=== PATIENT | female | born 1985 | race Caucasian/White ===

== ENCOUNTER 2016-12-25 09:22 | Day surgery (SDC) | payer OTHER ==
[2016-12-25] MEDS ORDERED: LIDOCAINE 1% 5 ML SDV ID PRN (09:40)
[2016-12-25] MEDS ORDERED: LR 1,000 ML IV ONE ×2 (09:40→10:00)
[2016-12-25] MEDS ORDERED: ceFAZolin 2 GM/DEXTROSE 100 ML IV ONE (10:00)
[2016-12-25] MEDS ORDERED: PHENAZOPYRIDINE HCL 200 MG TAB PO ONE (10:00)
[2016-12-25] MEDS ORDERED: fentaNYL 250 MCG/5 ML INJ ONE (10:43)
[2016-12-25] MEDS ORDERED: PROPOFOL 200 MG/20 ML VIAL ONE ×3 (10:43→11:59)
[2016-12-25] MEDS ORDERED: PROPOFOL/EMULSION 500 MG/50 ML BOTTLE IV ONE (10:43)
[2016-12-25] MEDS ORDERED: DEXAMETHASONE 4 MG/ML VIAL ONE (10:43)
[2016-12-25] MEDS ORDERED: GLYCOPYRROLATE 0.2 MG/1 ML VIAL ONE (10:44)
[2016-12-25] MEDS ORDERED: ROCURONIUM 100 MG/10 ML VIAL ONE (10:44)
[2016-12-25] MEDS ORDERED: MIDAZOLAM 2 MG/2 ML VIAL ONE (10:45)
[2016-12-25] MEDS ORDERED: SCOPOLAMINE HYDROBROMIDE 1.5 MG PATCH TD ONE ×2 (10:46→11:00)
[2016-12-25] MEDS ORDERED: SKIN ADHESIVE (DERMABOND) 1 EACH TP ONE (10:58)
[2016-12-25] MEDS ORDERED: BUPIVACAINE/EPI 0.5% 30 ML SDV ONE (10:58)
[2016-12-25] MEDS ORDERED: fentaNYL 100 MCG/2 ML INJ ONE ×2 (12:00→12:49)
[2016-12-25] MEDS ORDERED: ONDANSETRON 4 MG/2 ML VIAL ONE ×2 (12:12→12:50)
[2016-12-25] MEDS ORDERED: SUGAMMADEX SODIUM 200 MG/2 ML VIAL IVP ONE (12:13)
[2016-12-25] MEDS ORDERED: METOPROLOL TARTRATE 5 MG/5 ML INJ ONE (12:14)
[2016-12-25] MEDS ORDERED: HYDROmorphONE/DILAUDID 1 MG/ML SYR ONE ×2 (12:49→13:06)
[2016-12-25] MEDS ORDERED: HYDROCODONE/APAP 5/325 TAB ONE (12:50)
[2016-12-25] MEDS ORDERED: PROMETHAZINE HCL 25 MG/ML INJ ONE (13:06)
[2016-12-25] MEDS ORDERED: DIAZEPAM 10 MG/2 ML SYR ONE (13:15)
--- NOTE | 2016-12-25 13:58 | GOP ---
[f rep st] OPERATIVE REPORT DATE OF OPERATION: 12/25/2016 SURGEON: Kwame Chand MD [facility]ARIAN: Traci Cuba CFA ANESTHESIA: General. PREOPERATIVE DIAGNOSIS: 1. Endometriosis. 2. Pelvic pain. 3. Dysmenorrhea. POSTOPERATIVE DIAGNOSIS: 1. Endometriosis. 2. Pelvic pain. 3. Dysmenorrhea. PROCEDURE PERFORMED: 1. Robotic excision of pelvic peritoneum with endometriosis. 2. Right ureterolysis. 3. Cystoscopy. 4. Removal of intrauterine device. FINDINGS: SPECIMENS: Pelvic peritoneum with endometriosis. ESTIMATED BLOOD LOSS: Scant. DESCRIPTION OF PROCEDURE: The patient was taken to the operating room where she was identified. General anesthesia was administered and found to be adequate. She was placed in the lithotomy position and prepared and draped in normal sterile fashion. A speculum was placed in the vagina. The Mirena IUD was grasped with a ring forceps and easily removed. A [employer] uterine manipulator was placed into the endometrial cavity. A Hong catheter was then placed. A 1 cm infraumbilical incision was made with a scalpel. The Veress needle with a CO2 gas flowing advanced into the peritoneal cavity. The abdomen was then insufflated with carbon dioxide gas. The 12 mm trocar followed by the laparoscope were then inserted. The upper abdomen was unremarkable. There was no evidence of endometriosis on either diaphragm, liver, gallbladder, or stomach. Two lateral ports were placed, one on the right and one on the left, under direct visualization. The patient was then placed in Trendelenburg position and the da Coleen robot docked on the left side. The instruments were then brought into the abdominal cavity under direct visualization. White endometriosis was seen in the posterior cul-de-sac along both uterosacral ligaments, both ovarian fossas overlying the ureters, as well as the surface of the uterine serosa. The sigmoid colon was adherent on the left pelvic sidewall draping over the left adnexa. No endometriosis was seen in the anterior cul- de-sac. Several small spots of endometriosis were seen on each ovary. The entire posterior cul-de-sac peritoneum was completely excised to remove all endometriosis. Endometriosis was overlying the right ureter. As a result, a right ureterolysis was required. The peritoneum near the pelvic brim was incised. The ureter was gently dissected free and lateralized from the pelvic brim to where it crossed underneath the right uterine artery. Once the right ureter was adequately lateralized, the overlying peritoneum and endometriosis was completely excised. The endometriosis in the left ovarian fossa was then completely excised. The lesions on the ovaries were fulgurated, as well as the serosal surface of the uterus. The sigmoid colon adhesions had been taken down at the beginning of the procedure. All specimens were then removed. The pelvis was irrigated with sterile saline and hemostasis was present. One sheet of Interceed was placed in the posterior cul-de-sac to try to minimize postoperative adhesions. The robot was then undocked. The fascia was closed with 0 Vicryl, the skin with 4-0 Monocryl and surgical adhesive. Cystoscopy was then performed. Both ureters had vigorous jets of urine. There was no evidence of bladder nor urethral injury seen. There were 2 possible small Hunner ulcers just to the left of midline in the bladder. Anesthesia was reversed and the patient taken to the PACU awake, in stable condition. COMPLICATIONS: None. DISPOSITION: Patient stable to PACU. /[id number]/MODL BEBETO
== END 2016-12-25 16:00 | disposition home or self-care (01) ==
LOC: FSGY 09:22
PROVIDERS: ATTEND Obstetrics & Gynecology
PROC: 8E0W4CZ Robotic Assisted Procedure of Trunk Region, Percutaneous Endoscopic Approach (ICD-10-PCS; 2016-12-25)
PROC: 0DBW4ZX Excision of Peritoneum, Percutaneous Endoscopic Approach, Diagnostic (ICD-10-PCS; principal; 2016-12-25 10:45)
PROC: 0U524ZZ Destruction of Bilateral Ovaries, Percutaneous Endoscopic Approach (ICD-10-PCS; 2016-12-25 10:45)
PROC: 0UPD7HZ Removal of Contraceptive Device from Uterus and Cervix, Via Natural or Artificial Opening (ICD-10-PCS; 2016-12-25 10:45)
PROC: 0U594ZZ Destruction of Uterus, Percutaneous Endoscopic Approach (ICD-10-PCS; 2016-12-25 10:45)
DX: N80.3 Endometriosis of pelvic peritoneum (principal); N80.8 Other endometriosis; R10.2 Pelvic and perineal pain; N94.6 Dysmenorrhea, unspecified; N94.10 Unspecified dyspareunia; K59.00 Constipation, unspecified
CPT/HCPCS: 58301; 58662; C1765; J0690; J1100; J1170; J2250; J2405; J2550; J2704; J3010